=== PATIENT | male | born 1980 | race Caucasian/White ===

== ENCOUNTER 2023-02-22 10:35 | Outpatient (CLI) | payer BC, SELFPAY ==
--- NOTE | ~2023-02-22 | XR_ITS ---
EXAMINATION:XR cervical spine 4-5V DATE: 02/22/2023 11:10 INDICATION: Neck pain TECHNIQUE: AP, lateral, lateral swimmers and odontoid views of the cervical spine are provided. COMPARISON: None FINDINGS: Alignment is normal. The odontoid process is intact. No fracture is identified. The vertebr al body heights are maintained. There are disc replacements at C5-C6 and C6-7. IMPRESSION: 1. No acute osseous abnormality. Reviewed, dictated and finalized at location B.
== END 2023-02-22 10:36 | disposition home or self-care (01) ==
LOC: ANHIMG 10:49
DX: M54.2 Cervicalgia (principal); Z98.890 Other specified postprocedural states
CPT/HCPCS: 72050